=== PATIENT | male | born 1975 | race Caucasian/White ===

== ENCOUNTER 2017-11-10 15:47 | Emergency (ER) | payer SELFPAY ==
--- OUTSIDE RECORDS SUMMARY | 2017-11-10 15:49 | XMS REPORT ---
:1975 [facility] Address [address] [place] [address] [address] [address] Care Team Providers Name Role Phone JOSE VILLARREAL Primary Care Provider Unavailable Problems This patient has no known problems. Allergies, Adverse Reactions, Alerts This patient has no known allergies or adverse reactions. Medications This patient has no known medications. Encounters Start End Encounter Admission Attending Care Care Encounter Date/Time Date/Time Type Type Clinicians Facility Department ID 2017-05-24 2017-05-24 Emergency [facility] [id number] 09:40:00 09:40:00 2016-10-26 2016-10-26 Emergency [facility] [id number] 15:42:00 15:42:00
--- NOTE | 2017-11-10 16:09 | EDPHYS ---
Physician Documentation [facility] Name: Nabil Churchill Age: 42 yrs Sex: Male : 1975 Arrival Date: 11/10/2017 Time: 15:49 Bed External Waiting Private MD: ED Physician Sanju Maynard HPI: 11/10 16:02 This 42 yrs old Male presents to ER via Ambulatory with complaints of Ear kav Pain. 16:02 The patient presents with drainage, "...yellow appearing fluid", a fullness. The kav complaints affect the right ear. Onset: The symptoms/episode began/occurred 4 week(s) ago. Modifying factors: The symptoms are alleviated by nothing, the symptoms are aggravated by nothing. Associated signs and symptoms: Pertinent positives: sinus trouble, vertigo, Pertinent negatives: fever, nausea, rhinorrhea, shortness of breath, sore throat, vomiting. Severity of symptoms: At their worst the symptoms were very mild just prior to arrival, in the emergency department the symptoms are unchanged despite home interventions, Debrox. The patient has been recently seen by a physician: the patient's primary care provider. 16:11 reports c/o right ear pain x 4 weeks. used otc debrox that was ineffective. reports kav being seen by pcp and no further medication were advised. uses qtips to clean ears. wears earplugs at work daily. Historical: - Allergies: 15:52 No Known Allergies; la1 - PMHx: 15:52 Hypertension; la1 - Immunization history:: Adult Immunizations up to date. - Social history:: Smoking status: unknown. - Family history:: not pertinent. - Hospitalizations: : No recent hospitalization is reported. - History obtained from: significant other. ROS: 16:05 Constitutional: Negative for fever, chills, and weight loss, Eyes: Negative for injury, kav pain, redness, and discharge, Neck: Negative for injury, pain, and swelling, Cardiovascular: Negative for chest pain, palpitations, and edema, Respiratory: Negative for shortness of breath, cough, wheezing, and pleuritic chest pain, Abdomen/GI: Negative for abdominal pain, nausea, vomiting, diarrhea, and constipation, Back: Negative for injury and pain, : Negative for injury, bleeding, discharge, and swelling, MS/Extremity: Negative for injury and deformity, Skin: Negative for injury, rash, and discoloration, Neuro: Negative for headache, weakness, numbness, tingling, and seizure, Psych: Negative for depression, anxiety, suicide ideation, homicidal ideation, and hallucinations, Allergy/Immunology: Negative for hives, rash, and allergies, Endocrine: Negative for neck swelling, polydipsia, polyuria, polyphagia, and marked weight changes, Hematologic/Lymphatic: Negative for swollen nodes, abnormal bleeding, and unusual bruising. 16:05 ENT: Positive for ear pain. Exam: 16:05 Constitutional: This is a well developed, well nourished patient who is awake, alert, kav and in no acute distress. Head/Face: Normocephalic, atraumatic. Eyes: Pupils equal round and reactive to light, extra-ocular motions intact. Lids and lashes normal. Conjunctiva and sclera are non-icteric and not injected. Cornea within normal limits. Periorbital areas with no swelling, redness, or edema. Neck: Trachea midline, no thyromegaly or masses palpated, and no cervical lymphadenopathy. Supple, full range of motion without nuchal rigidity, or vertebral point tenderness. No Meningismus. Chest/axilla: Normal chest wall appearance and motion. Nontender with no deformity. No lesions are appreciated. Cardiovascular: Regular rate and rhythm with a normal S1 and S2. No gallops, murmurs, or rubs. Normal PMI, no JVD. No pulse deficits. Respiratory: Lungs have equal breath sounds bilaterally, clear to auscultation and percussion. No rales, rhonchi or wheezes noted. No increased work of breathing, no retractions or nasal flaring. Abdomen/GI: Soft, non-tender, with normal bowel sounds. No distension or tympany. No guarding or rebound. No evidence of tenderness throughout. Back: No spinal tenderness. No costovertebral tenderness. Full range of motion. Skin: Warm, dry with normal turgor. Normal color with no rashes, no lesions, and no evidence of cellulitis. MS/ Extremity: Pulses equal, no cyanosis. Neurovascular intact. Full, normal range of motion. Neuro: Awake and alert, GCS 15, oriented to person, place, time, and situation. Cranial nerves II-XII grossly intact. Motor strength 5/5 in all extremities. Sensory grossly intact. Cerebellar exam normal. Normal gait. Psych: Awake, alert, with orientation to person, place and time. Behavior, mood, and affect are within normal limits. 16:05 ENT: External ear(s): are unremarkable, no acute changes, Ear canal(s): are normal, no acute changes, TM's: fluid levels, on the right, Examination of the other ear shows no obvious abnormality, Nose: Turbinates: are swollen bilaterally, Posterior pharynx: is normal, no acute changes, Voice: no acute changes, Breath odor: is normal. 16:11 ENT: Ear canal(s): erythema, that is minimal, of the right canal. [facility] Vital Signs: 15:52 Pulse 79; Resp 16; Temp 97.8(TE); Pulse Ox 100% on R/A; Weight 108.86 kg; Height 5 ft. la1 8 in. (172.72 cm); 15:52 BP 175 / 105; la1 15:52 Body Mass Index 36.49 (108.86 kg, 172.72 cm) la1 MDM: 15:53 Patient medically screened. [facility] 16:05 Data reviewed: vital signs, nurses notes. ka Administered Medications: No medications were administered Disposition: 11/10/17 16:08 Discharged to Home. Impression: Acute serous otitis media, right ear. - Condition is Stable. - Discharge Instructions: Serous Otitis Media, Otitis Externa, [id number]. - Prescriptions for Cortisporin- TC 3.3-3-10-0.5 mg/mL Otic Suspension - instill 4 drop by OTIC route every 6 hours; 1 bottle. - Work release form, Medication Reconciliation Form, Thank You Letter, Antibiotic Education, Prescription Opioid Use form. - Follow up: Private Physician; When: 2 - 3 days; Reason: Recheck today's complaints, Continuance of care, Re-evaluation by your physician, Evaluation and Treatment of Blood Pressure. - Problem is new. - Symptoms are unchanged. Signatures: Katlin Cantu, PHILIPPEC CLASSIFICATION OFFICER-Tajw Queta Brito FNP FNP Adam Allen RN RN la1 Tiana Blanco RN RN kr2
--- NOTE | 2017-11-10 16:09 | ER ---
Nurse's Notes [facility] Name: Nabil Churchill Age: 42 yrs Sex: Male : 1975 Arrival Date: 11/10/2017 Time: 15:49 Bed External Waiting Private MD: Diagnosis: Acute serous otitis media, right ear Presentation: 11/10 15:51 Presenting complaint: Patient states: My right ear has been "clogged up" for 4 months. la1 Transition of care: patient was not received from another setting of care. Onset of symptoms was November 10, 2017. Initial Sepsis Screen: Does the patient meet any 2 criteria? No. Patient's initial sepsis screen is negative. Does the patient have a suspected source of infection? No. Patient's initial sepsis screen is negative. Care prior to arrival: None. 15:51 Method Of Arrival: Ambulatory la1 15:51 Acuity: [place] 5 la1 Historical: - Allergies: 15:52 No Known Allergies; la1 - PMHx: 15:52 Hypertension; la1 - Immunization history:: Adult Immunizations up to date. - Social history:: Smoking status: unknown. - Family history:: not pertinent. - Hospitalizations: : No recent hospitalization is reported. - History obtained from: significant other. Screenin:38 Abuse screen: Denies threats or abuse. Denies injuries from another. Nutritional kr2 screening: No deficits noted. Tuberculosis screening: No symptoms or risk factors identified. Fall Risk None identified. Assessment: 16:10 General: Appears in no apparent distress. comfortable, well groomed, well developed, kr2 well nourished, Behavior is calm, cooperative, appropriate for age. Pain: Complains of pain in right ear Pain currently is 5 out of 10 on a pain scale. Quality of pain is described as aching, Is continuous. Neuro: Level of Consciousness is awake, alert, obeys commands, Oriented to person, place, time, situation. Cardiovascular: Capillary refill < 3 seconds in bilateral fingers Patient's skin is warm and dry. Respiratory: Airway is patent Respiratory effort is even, unlabored, Respiratory pattern is regular, symmetrical. EENT: Reports pain in right ear. Derm: Skin is intact, is healthy with good turgor, Skin is pink, warm \\T\\ dry. Vital Signs: 15:52 Pulse 79; Resp 16; Temp 97.8(TE); Pulse Ox 100% on R/A; Weight 108.86 kg; Height 5 ft. la1 8 in. (172.72 cm); 15:52 BP 175 / 105; la1 15:52 Body Mass Index 36.49 (108.86 kg, 172.72 cm) la1 ED Course: 15:49 Patient arrived in ED. as 15:49 Queta Brito FNP is [facility]. ka 15:49 Sanju Maynard MD is Attending Physician. kav 15:51 Triage completed. la1 15:52 Arm band placed on left wrist. la1 16:03 Tiana Blanco, RN is Primary Nurse. kr2 16:10 Patient has correct armband on for positive identification. Bed in low position. Call kr2 light in reach. Door closed. Verbal reassurance given. 16:39 No provider procedures requiring assistance completed. Patient did not have IV access kr2 during this emergency room visit. 17:25 Primary Nurse role handed off by Tiana Blanco, MARILUZ Administered Medications: No medications were administered Outcome: 16:08 Discharge ordered by . kav 16:39 Discharged to home ambulatory, with family. kr2 16:39 Condition: good 16:39 Discharge instructions given to patient, Instructed on discharge instructions, follow up and referral plans. medication usage, Demonstrated understanding of instructions, follow-up care, medications, Prescriptions given X 1. 16:40 Patient left the ED. kr2 18:27 Patient left the ED. snw Signatures: Katlin Cantu FNP-C [employer]-Csnw Queta Brito FNP FNP kav Martinez, Amelia as Smirch, Shelby, RN RN ss Adam Allen RN RN la1 Tiana Blanco, MARILUZ RN kr2
== END 2017-11-10 18:27 | disposition home or self-care (01) ==
LOC: ER 15:47
DX: H65.01 Acute serous otitis media, right ear (principal)
CPT/HCPCS: 99282